=== PATIENT | male | born 1980 | race Caucasian/White ===

== ENCOUNTER 2020-05-28 08:59 | Inpatient (IN) | payer MEDICARE ==
[2020-05-28] MEDS ORDERED: ZOLPIDEM TARTRATE 10 MG TABLET PO PRN (09:30)
[2020-05-28 14:23] VITALS: BP 100/75
[2020-05-28] MEDS: LORazepam 2 MG TABLET PO PRN (14:34)
[2020-05-28 16:15] VITALS: BP 105/60
[2020-05-28] MEDS ORDERED: INFLUENZA VIRUS VACCINE QVS 2020-21 (6MO+)/PF 60 MCG/0.5 ML SYRINGE IM ONE (19:30)
[2020-05-28] MEDS ORDERED: CAPSAICIN 0.025% 60 GM CREAM TP PRN (21:15)
[2020-05-29 01:45] VITALS: BP 101/54
[2020-05-29 07:00] LABS: BASOPHILS % (AUTO) 0.9 % (0.0-2.0); EOSINOPHILS % (AUTO) 3.7 % (1.0-6.0); HEMATOCRIT 45.5 % (41-53); HEMOGLOBIN 15.6 g/dL (13.5-17.5); LYMPHOCYTES # (AUTO) 2.9 K/uL (1.0-4.8); LYMPHOCYTES % (AUTO) 42.6 % (22.0-44.0); MEAN CORPUSCULAR HEMOGLOBIN 31.8 pg (26.0-34.0); MEAN CORPUSCULAR HGB CONC 34.4 G/dL (31.0-37.0); MEAN CORPUSCULAR VOLUME 92 fL (80-100); MONOCYTES # (AUTO) 0.6 K/uL (0.1-1.0); MONOCYTES % (AUTO) 9.4 % (2.0-9.0); NEUTROPHILS % (AUTO) 43.4 % (40.0-70.0); PLATELET COUNT (AUTO) 276 K/uL (150-450); RED BLOOD CELL COUNT(AUTO) 4.93 MIL/uL (4.50-5.90); RED CELL DISTRIBUTION WIDTH 13.4 % (11.5-14.5)
[2020-05-29 07:33] LABS: ALANINE AMINOTRANSFERASE 26 U/L (12-78); ALBUMIN 3.3 g/dL (3.4-5.0); ALKALINE PHOSPHATASE 63 U/L (46-116); ANION GAP 8 mmol/L (8-16); ASPARTATE AMINOTRANSFERASE 16 U/L (15-37); BILIRUBIN,TOTAL 0.2 mg/dL (0.1-1.0); CALCIUM, TOTAL 9.2 mg/dL (8.8-10.5); CARBON DIOXIDE 25 mmol/L (22-29); CHLORIDE 106 mmol/L (98-107); CHOL/HDL RATIO 3.5 (4.2-7.3); CHOLESTEROL 163 mg/dL (131-200); GLOMERULAR FILTR. RATE CALC > 60 mL/min (>60); GLUCOSE,RANDOM 90 mg/dL (70-110); HDL CHOLESTEROL 47 mg/dL (40-60); LDL CHOL (CALC.) 104 mg/dL (0-130); POTASSIUM 4.4 mmol/L (3.5-5.1); SODIUM SERUM 139 mmol/L (136-145); TOTAL PROTEIN, SERUM 6.2 g/dL (6.4-8.2); TRIGLYCERIDES 62 mg/dL (15-150); UREA NITROGEN, BLOOD 16 mg/dL (7-18)
[2020-05-29 08:16] VITALS: BP 113/63
[2020-05-29 08:33] LABS: HEMOGLOBIN A1C 5.5 % (3.8-5.6)
[2020-05-29] MEDS: NICOTINE 14 MG/24 HOUR PATCH TD SCH (09:11)
[2020-05-29] MEDS: OXcarbazepine 300 MG TABLET PO SCH ×2 (10:44→20:33)
[2020-05-29] MEDS: LORazepam 2 MG TABLET PO PRN (14:30)
[2020-05-29] MEDS ORDERED: MAG HYDROX/AL HYDROX/SIMETH ES 30 ML SUSPENSION UDCUP PO PRN (15:15)
[2020-05-29] MEDS ORDERED: CloNIDine HCL 0.1 MG TABLET PO PRN (15:15)
[2020-05-29] MEDS ORDERED: PETROLATUM,WHITE 28 GM JELLY TP PRN (15:15)
[2020-05-29] MEDS ORDERED: GuaiFENesin/D-METHORPHAN [SUGAR-FREE] 200-20MG/10 ML SYRUP UDCUP PO PRN (15:15)
[2020-05-29] MEDS ORDERED: NICOTINE 14 MG/24 HOUR PATCH TD PRN (15:15)
[2020-05-29] MEDS ORDERED: DOCUSATE SODIUM 100 MG CAPSULE PO PRN (15:15)
[2020-05-29] MEDS ORDERED: LOPERAMIDE HCL 2 MG CAPSULE PO PRN (15:15)
[2020-05-29] MEDS ORDERED: MAGNESIUM HYDROXIDE SUSPENSION 30 ML UDCUP PO PRN (15:15)
[2020-05-29] MEDS ORDERED: ALBUTEROL SULFATE HFA 90 MCG/PUFF 8 GM INHALER IH PRN (15:15)
[2020-05-29] MEDS ORDERED: ACETAMINOPHEN 325 MG TABLET PO PRN (15:15)
[2020-05-29] MEDS ORDERED: ONDANSETRON HCL 4 MG TABLET PO PRN (15:15)
[2020-05-29] MEDS ORDERED: IBUPROFEN 400 MG TABLET PO PRN (15:15)
[2020-05-29 16:18] VITALS: BP 112/64
[2020-05-29] MEDS: QUEtiapine FUMARATE 300 MG TABLET PO SCH (20:33)
[2020-05-29] MEDS: GABAPENTIN 400 MG CAPSULE PO SCH (20:34)
[2020-05-30 05:55] VITALS: BP 110/69
[2020-05-30 07:57] LABS: AMPHET/METH SCREEN,URINE NEGATIVE (NEGATIVE); BARBITURATE SCREEN, URINE NEGATIVE (NEGATIVE); BENZODIAZEPINES SCREEN,URINE NEGATIVE (NEGATIVE); CANNABINOID SCREEN,URINE POSITIVE (NEGATIVE); COCAINE SCREEN,URINE NEGATIVE (NEGATIVE); METHADONE SCREEN, URINE NEGATIVE (NEGATIVE); OPIATE SCREEN,URINE NEGATIVE (NEGATIVE)
[2020-05-30 08:06] LABS: APPEARANCE,URINE CLEAR (CLEAR); BILIRUBIN,URINE NEGATIVE (NEGATIVE); GLUCOSE, URINE (UA) NEGATIVE (NEGATIVE); KETONES,URINE NEGATIVE (NEGATIVE); LEUKOCYTE ESTERASE ,URINE NEGATIVE (NEGATIVE); NITRATE,URINE NEGATIVE (NEGATIVE); OCCULT BLOOD,URINE NEGATIVE (NEGATIVE); PROTEIN,URINE NEGATIVE (NEGATIVE); UROBILINOGEN,URINE 0.2 mg/dL (<=1.0)
[2020-05-30 08:08] LABS: PHENCYCLIDINE SCREEN,URINE NEGATIVE (NEGATIVE)
[2020-05-30] MEDS: OXcarbazepine 300 MG TABLET PO SCH ×2 (08:46→20:27)
[2020-05-30] MEDS: NICOTINE 14 MG/24 HOUR PATCH TD SCH (08:51)
[2020-05-30] MEDS: LORazepam 2 MG TABLET PO PRN (12:03)
[2020-05-30 16:15] VITALS: BP_SYST 113; BP_SYST 97; BP_DIAS 60; BP_DIAS 72
[2020-05-30] MEDS: GABAPENTIN 400 MG CAPSULE PO SCH (20:26)
[2020-05-30] MEDS: QUEtiapine FUMARATE 300 MG TABLET PO SCH (20:27)
[2020-05-31 05:20] VITALS: BP 100/72
[2020-05-31 08:24] VITALS: BP 104/68
[2020-05-31] MEDS: OXcarbazepine 300 MG TABLET PO SCH ×2 (09:06→22:08)
[2020-05-31] MEDS: NICOTINE 14 MG/24 HOUR PATCH TD SCH (09:27)
[2020-05-31] MEDS: LORazepam 2 MG TABLET PO PRN (12:48)
[2020-05-31 16:23] VITALS: BP 105/71
[2020-05-31] MEDS: QUEtiapine FUMARATE 300 MG TABLET PO SCH (22:07)
[2020-05-31] MEDS: GABAPENTIN 400 MG CAPSULE PO SCH (22:08)
[2020-05-31] MEDS: NICOTINE POLACRILEX 2 MG LOZENGE PO PRN (22:09)
[2020-06-01 06:07] VITALS: BP 129/78
[2020-06-01] MEDS: OXcarbazepine 300 MG TABLET PO SCH ×2 (10:05→20:37)
[2020-06-01] MEDS: NICOTINE POLACRILEX 2 MG LOZENGE PO PRN (11:32)
[2020-06-01] MEDS: LORazepam 2 MG TABLET PO PRN ×2 (13:55→17:56)
[2020-06-01 14:50] VITALS: BP 83/44
[2020-06-01 16:07] VITALS: BP 108/60
[2020-06-01] MEDS: QUEtiapine FUMARATE 300 MG TABLET PO SCH (20:37)
[2020-06-01] MEDS: GABAPENTIN 400 MG CAPSULE PO SCH (20:38)
[2020-06-02 01:43] VITALS: BP 106/69
[2020-06-02 08:10] VITALS: BP 104/69
[2020-06-02] MEDS: OXcarbazepine 300 MG TABLET PO SCH ×2 (08:28→20:31)
[2020-06-02] MEDS: NICOTINE POLACRILEX 2 MG LOZENGE PO PRN ×2 (11:14→18:40)
[2020-06-02] MEDS: LORazepam 2 MG TABLET PO PRN ×2 (12:44→16:44)
[2020-06-02 16:04] VITALS: BP 107/63
[2020-06-02] MEDS: QUEtiapine FUMARATE 100 MG TABLET PO PRN (17:21)
[2020-06-02] MEDS: QUEtiapine FUMARATE 300 MG TABLET PO SCH (20:30)
[2020-06-02] MEDS: GABAPENTIN 400 MG CAPSULE PO SCH (20:31)
[2020-06-03 00:58] VITALS: BP 147/81
[2020-06-03 08:27] VITALS: BP 102/60
[2020-06-03] MEDS: OXcarbazepine 300 MG TABLET PO SCH ×2 (08:32→20:18)
[2020-06-03] MEDS: LORazepam 2 MG TABLET PO PRN ×3 (10:27→18:28)
[2020-06-03] MEDS: NICOTINE POLACRILEX 2 MG LOZENGE PO PRN ×2 (10:28→16:28)
[2020-06-03 16:30] VITALS: BP 100/60
[2020-06-03] MEDS: QUEtiapine FUMARATE 100 MG TABLET PO PRN (18:27)
[2020-06-03 19:00] LABS: COVID AG,FIA SOURCE NASAL SWAB
[2020-06-03] MEDS: QUEtiapine FUMARATE 300 MG TABLET PO SCH (20:18)
[2020-06-03] MEDS: GABAPENTIN 400 MG CAPSULE PO SCH (20:18)
[2020-06-04 01:25] VITALS: BP 98/62
[2020-06-04 08:07] VITALS: BP 106/68
[2020-06-04] MEDS: LORazepam 2 MG TABLET PO PRN ×2 (11:03→15:42)
[2020-06-04] MEDS: NICOTINE POLACRILEX 2 MG LOZENGE PO PRN ×3 (11:03→23:06)
[2020-06-04] MEDS: OXcarbazepine 300 MG TABLET PO SCH ×2 (11:04→20:29)
[2020-06-04 16:07] VITALS: BP 106/68
[2020-06-04] MEDS: GABAPENTIN 400 MG CAPSULE PO SCH (20:29)
[2020-06-04] MEDS: QUEtiapine FUMARATE 300 MG TABLET PO SCH (20:29)
[2020-06-05 02:40] VITALS: BP 92/66
[2020-06-05 08:17] VITALS: BP 101/60
[2020-06-05] MEDS: OXcarbazepine 300 MG TABLET PO SCH ×2 (09:24→20:26)
[2020-06-05] MEDS: NICOTINE POLACRILEX 2 MG LOZENGE PO PRN ×3 (10:08→19:32)
[2020-06-05] MEDS: LORazepam 2 MG TABLET PO PRN ×3 (10:54→21:28)
[2020-06-05 16:36] VITALS: BP 102/69
[2020-06-05] MEDS: QUEtiapine FUMARATE 300 MG TABLET PO SCH (20:25)
[2020-06-05] MEDS: GABAPENTIN 400 MG CAPSULE PO SCH (20:26)
[2020-06-06 00:46] VITALS: BP 132/68
[2020-06-06 02:42] VITALS: BP 138/74
[2020-06-06] MEDS: LORazepam 2 MG TABLET PO PRN ×4 (02:43→19:11)
[2020-06-06 08:08] VITALS: BP 104/60
[2020-06-06] MEDS: OXcarbazepine 300 MG TABLET PO SCH ×2 (08:38→20:30)
[2020-06-06] MEDS: NICOTINE POLACRILEX 2 MG LOZENGE PO PRN ×3 (10:55→20:09)
[2020-06-06 16:40] VITALS: BP 102/64
[2020-06-06] MEDS: GABAPENTIN 400 MG CAPSULE PO SCH (20:30)
[2020-06-06] MEDS: QUEtiapine FUMARATE 200 MG TABLET PO SCH (20:30)
[2020-06-07 04:08] VITALS: BP 103/73
[2020-06-07 08:15] VITALS: BP 107/69
[2020-06-07] MEDS: OXcarbazepine 300 MG TABLET PO SCH ×2 (08:43→20:30)
[2020-06-07] MEDS: LORazepam 2 MG TABLET PO PRN (12:06)
[2020-06-07] MEDS: NICOTINE POLACRILEX 2 MG LOZENGE PO PRN ×2 (12:07→16:10)
[2020-06-07 16:30] VITALS: BP 131/81
[2020-06-07] MEDS: GABAPENTIN 400 MG CAPSULE PO SCH (20:30)
[2020-06-07] MEDS: QUEtiapine FUMARATE 200 MG TABLET PO SCH (20:30)
[2020-06-08 00:52] VITALS: BP 99/61
[2020-06-08 08:20] VITALS: BP 106/62
[2020-06-08] MEDS: OXcarbazepine 300 MG TABLET PO SCH ×2 (10:07→20:23)
[2020-06-08] MEDS: NICOTINE POLACRILEX 2 MG LOZENGE PO PRN ×4 (10:26→21:14)
[2020-06-08] MEDS: LORazepam 2 MG TABLET PO PRN (13:11)
[2020-06-08 16:30] VITALS: BP 113/67
[2020-06-08] MEDS: GABAPENTIN 400 MG CAPSULE PO SCH (20:23)
[2020-06-08] MEDS: QUEtiapine FUMARATE 200 MG TABLET PO SCH (20:23)
[2020-06-09 04:10] VITALS: BP 110/68
[2020-06-09] MEDS: NICOTINE POLACRILEX 2 MG LOZENGE PO PRN ×5 (04:17→20:17)
[2020-06-09] MEDS: LORazepam 2 MG TABLET PO PRN ×3 (04:17→16:59)
[2020-06-09] MEDS: OXcarbazepine 300 MG TABLET PO SCH ×2 (08:52→20:16)
[2020-06-09 11:39] VITALS: BP 105/66
[2020-06-09 16:18] VITALS: BP 106/67
[2020-06-09 17:00] VITALS: BP 117/76
[2020-06-09] MEDS: QUEtiapine FUMARATE 200 MG TABLET PO SCH (20:16)
[2020-06-09] MEDS: GABAPENTIN 400 MG CAPSULE PO SCH (20:16)
[2020-06-10] MEDS: LORazepam 2 MG TABLET PO PRN ×2 (03:31→12:10)
[2020-06-10] MEDS: NICOTINE POLACRILEX 2 MG LOZENGE PO PRN ×5 (07:14→22:03)
[2020-06-10 08:08] VITALS: BP 100/62
[2020-06-10] MEDS: OXcarbazepine 300 MG TABLET PO SCH ×3 (09:00→20:30)
[2020-06-10 16:21] VITALS: BP 108/69
[2020-06-10] MEDS: GABAPENTIN 400 MG CAPSULE PO SCH (20:30)
[2020-06-10] MEDS: QUEtiapine FUMARATE 200 MG TABLET PO SCH (20:30)
[2020-06-11 00:30] VITALS: BP 98/65
[2020-06-11] MEDS ORDERED: OXCA300T57 PO (04:58)
[2020-06-11] MEDS ORDERED: GABA-1201 PO (04:59)
[2020-06-11] MEDS ORDERED: QUET200T PO (05:01)
== END 2020-06-11 07:20 | disposition home or self-care (01) | DRG 885 ==
LOC: B2X 13:11
DX: F25.1 Schizoaffective disorder, depressive type (principal); R45.851 Suicidal ideations; M19.90 Unspecified osteoarthritis, unspecified site; Z20.828 Contact with and (suspected) exposure to other viral communicable diseases; Z79.899 Other long term (current) drug therapy; Z59.0 Homelessness; F17.200 Nicotine dependence, unspecified, uncomplicated; F15.10 Other stimulant abuse, uncomplicated; F12.10 Cannabis abuse, uncomplicated; F41.9 Anxiety disorder, unspecified; K59.00 Constipation, unspecified
CPT/HCPCS: 80307; 83036; 86592; 87426

== ENCOUNTER 2020-06-22 12:52 | Inpatient (IN) | payer MEDICARE, MEDICAID ==
[~2020-06-22] VITALS: Ht 185.4 cm; Wt 90.0 kg
[~2020-06-22 12:52] MED LIST: GABA-1201 PO; OXCA300T57 PO; QUET200T PO
[2020-06-22 18:02] VITALS: BP 131/70
[2020-06-22] MEDS: GABAPENTIN 400 MG CAPSULE PO SCH (20:42)
[2020-06-22] MEDS: QUEtiapine FUMARATE 200 MG TABLET PO SCH (20:42)
[2020-06-22] MEDS: OXcarbazepine 300 MG TABLET PO SCH (20:42)
[2020-06-23 01:47] VITALS: BP 128/68
[2020-06-23] MEDS ORDERED: PETROLATUM,WHITE 28 GM JELLY TP PRN (08:00)
[2020-06-23] MEDS ORDERED: CloNIDine HCL 0.1 MG TABLET PO PRN (08:00)
[2020-06-23] MEDS ORDERED: GuaiFENesin/D-METHORPHAN [SUGAR-FREE] 200-20MG/10 ML SYRUP UDCUP PO PRN (08:00)
[2020-06-23] MEDS ORDERED: ALBUTEROL SULFATE HFA 90 MCG/PUFF 8 GM INHALER IH PRN (08:00)
[2020-06-23] MEDS ORDERED: LOPERAMIDE HCL 2 MG CAPSULE PO PRN (08:00)
[2020-06-23] MEDS ORDERED: DOCUSATE SODIUM 100 MG CAPSULE PO PRN (08:00)
[2020-06-23] MEDS ORDERED: NICOTINE 14 MG/24 HOUR PATCH TD PRN (08:00)
[2020-06-23] MEDS ORDERED: ACETAMINOPHEN 325 MG TABLET PO PRN (08:00)
[2020-06-23] MEDS ORDERED: MAGNESIUM HYDROXIDE SUSPENSION 30 ML UDCUP PO PRN (08:00)
[2020-06-23] MEDS ORDERED: MAG HYDROX/AL HYDROX/SIMETH ES 30 ML SUSPENSION UDCUP PO PRN (08:00)
[2020-06-23] MEDS ORDERED: ONDANSETRON HCL 4 MG TABLET PO PRN (08:00)
[2020-06-23] MEDS: OXcarbazepine 300 MG TABLET PO SCH ×2 (08:32→20:02)
[2020-06-23] MEDS: NICOTINE 14 MG/24 HOUR PATCH TD SCH (08:32)
[2020-06-23 09:20] VITALS: BP 109/61
[2020-06-23 16:15] VITALS: BP 107/65
[2020-06-23] MEDS: GABAPENTIN 400 MG CAPSULE PO SCH (20:02)
[2020-06-23] MEDS: QUEtiapine FUMARATE 200 MG TABLET PO SCH (20:02)
[2020-06-23] MEDS ORDERED: GABAPENTIN 400 MG CAPSULE PO SCH (21:00)
[2020-06-24 01:51] VITALS: BP 111/70
[2020-06-24 08:11] LABS: BASOPHILS % (AUTO) 0.9 % (0.0-2.0); EOSINOPHILS % (AUTO) 4.6 % (1.0-6.0); HEMATOCRIT 42.9 % (41-53); HEMOGLOBIN 14.3 g/dL (13.5-17.5); LYMPHOCYTES # (AUTO) 2.2 K/uL (1.0-4.8); MEAN CORPUSCULAR HEMOGLOBIN 31.2 pg (26.0-34.0); MEAN CORPUSCULAR HGB CONC 33.4 G/dL (31.0-37.0); MEAN CORPUSCULAR VOLUME 93 fL (80-100); MONOCYTES # (AUTO) 0.9 K/uL (0.1-1.0); MONOCYTES % (AUTO) 16.6 % (2.0-9.0); NEUTROPHILS # (AUTO) 1.9 K/uL (1.8-7.7); NEUTROPHILS % (AUTO) 36.9 % (40.0-70.0); PLATELET COUNT (AUTO) 310 K/uL (150-450); RED BLOOD CELL COUNT(AUTO) 4.59 MIL/uL (4.50-5.90); RED CELL DISTRIBUTION WIDTH 13.8 % (11.5-14.5)
[2020-06-24 08:25] VITALS: BP 104/63
[2020-06-24 08:39] LABS: ALANINE AMINOTRANSFERASE 51 U/L (12-78); ALBUMIN 2.9 g/dL (3.4-5.0); ALKALINE PHOSPHATASE 56 U/L (46-116); ANION GAP 7 mmol/L (8-16); ASPARTATE AMINOTRANSFERASE 28 U/L (15-37); BILIRUBIN,TOTAL 0.2 mg/dL (0.1-1.0); CALCIUM, TOTAL 8.8 mg/dL (8.8-10.5); CARBON DIOXIDE 27 mmol/L (22-29); CHLORIDE 108 mmol/L (98-107); CHOLESTEROL 140 mg/dL (131-200); CREATININE 0.91 mg/dL (0.60-1.30); FREE T4 (FREE THYROXINE) 0.93 ng/dL (0.76-1.46); GLOMERULAR FILTR. RATE CALC > 60 mL/min (>60); GLUCOSE,RANDOM 81 mg/dL (70-110); HDL CHOLESTEROL 35 mg/dL (40-60); LDL CHOL (CALC.) 77 mg/dL (0-130); SODIUM SERUM 142 mmol/L (136-145); TOTAL PROTEIN, SERUM 6.5 g/dL (6.4-8.2); TRIGLYCERIDES 140 mg/dL (15-150); UREA NITROGEN, BLOOD 13 mg/dL (7-18)
[2020-06-24] MEDS: OXcarbazepine 300 MG TABLET PO SCH ×2 (09:24→20:31)
[2020-06-24] MEDS: NICOTINE 14 MG/24 HOUR PATCH TD SCH (09:31)
[2020-06-24] MEDS: IBUPROFEN 400 MG TABLET PO PRN (10:57)
[2020-06-24] MEDS: LORazepam 2 MG TABLET PO PRN ×2 (12:16→16:38)
[2020-06-24] MEDS: QUEtiapine FUMARATE 100 MG TABLET PO PRN (12:16)
[2020-06-24 16:08] VITALS: BP 103/67
[2020-06-24] MEDS: GABAPENTIN 400 MG CAPSULE PO SCH (20:31)
[2020-06-24] MEDS: QUEtiapine FUMARATE 200 MG TABLET PO SCH (20:31)
[2020-06-25 05:11] VITALS: BP 112/62
[2020-06-25 08:14] VITALS: BP 104/59
[2020-06-25 08:42] LABS: BILIRUBIN,URINE NEGATIVE (NEGATIVE); GLUCOSE, URINE (UA) NEGATIVE (NEGATIVE); KETONES,URINE NEGATIVE (NEGATIVE); LEUKOCYTE ESTERASE ,URINE NEGATIVE (NEGATIVE); NITRATE,URINE NEGATIVE (NEGATIVE); OCCULT BLOOD,URINE NEGATIVE (NEGATIVE); PROTEIN,URINE NEGATIVE (NEGATIVE); UROBILINOGEN,URINE 0.2 mg/dL (<=1.0)
[2020-06-25 08:52] LABS: APPEARANCE,URINE HAZY (CLEAR)
[2020-06-25 08:54] LABS: AMPHET/METH SCREEN,URINE NEGATIVE (NEGATIVE); BARBITURATE SCREEN, URINE NEGATIVE (NEGATIVE); BENZODIAZEPINES SCREEN,URINE NEGATIVE (NEGATIVE); CANNABINOID SCREEN,URINE NEGATIVE (NEGATIVE); COCAINE SCREEN,URINE NEGATIVE (NEGATIVE); METHADONE SCREEN, URINE NEGATIVE (NEGATIVE); OPIATE SCREEN,URINE NEGATIVE (NEGATIVE)
[2020-06-25 08:55] LABS: PHENCYCLIDINE SCREEN,URINE NEGATIVE (NEGATIVE)
[2020-06-25] MEDS: OXcarbazepine 300 MG TABLET PO SCH ×2 (09:32→21:00)
[2020-06-25] MEDS: NICOTINE 14 MG/24 HOUR PATCH TD SCH (09:32)
[2020-06-25] MEDS: LORazepam 2 MG TABLET PO PRN (16:27)
[2020-06-25 16:28] VITALS: BP 113/75
[2020-06-25] MEDS ORDERED: MUPIROCIN CALCIUM 2% 22 GM OINTMENT NASAL SCH (17:00)
[2020-06-25] MEDS: GABAPENTIN 400 MG CAPSULE PO SCH (21:00)
[2020-06-25] MEDS: QUEtiapine FUMARATE 200 MG TABLET PO SCH (21:00)
[2020-06-26 06:49] VITALS: BP 112/64
[2020-06-26 08:09] VITALS: BP 113/70
[2020-06-26] MEDS: OXcarbazepine 300 MG TABLET PO SCH ×2 (09:17→20:33)
[2020-06-26] MEDS: LORazepam 2 MG TABLET PO PRN ×2 (09:28→16:17)
[2020-06-26] MEDS: NICOTINE 14 MG/24 HOUR PATCH TD SCH (09:28)
[2020-06-26] MEDS: MUPIROCIN CALCIUM 2% 22 GM OINTMENT NASAL SCH ×2 (09:30→16:30)
[2020-06-26 16:07] VITALS: BP 101/67
[2020-06-26] MEDS: IBUPROFEN 400 MG TABLET PO PRN (16:13)
[2020-06-26 16:18] VITALS: BP 120/77
[2020-06-26] MEDS: GABAPENTIN 400 MG CAPSULE PO SCH (20:33)
[2020-06-26] MEDS: QUEtiapine FUMARATE 200 MG TABLET PO SCH (20:33)
[2020-06-27 04:00] VITALS: BP 110/69
[2020-06-27 07:23] LABS: COVID AG,FIA SOURCE NASOPHARYNGEAL
[2020-06-27] MEDS: OXcarbazepine 300 MG TABLET PO SCH ×2 (08:56→20:29)
[2020-06-27] MEDS: MUPIROCIN CALCIUM 2% 22 GM OINTMENT NASAL SCH ×2 (08:56→16:34)
[2020-06-27] MEDS: NICOTINE 14 MG/24 HOUR PATCH TD SCH (08:57)
[2020-06-27 09:00] VITALS: BP 122/63
[2020-06-27] MEDS: LORazepam 2 MG TABLET PO PRN (11:11)
[2020-06-27] MEDS: QUEtiapine FUMARATE 100 MG TABLET PO PRN (13:24)
[2020-06-27 16:15] VITALS: BP 107/70
[2020-06-27] MEDS: QUEtiapine FUMARATE 200 MG TABLET PO SCH (20:29)
[2020-06-27] MEDS: GABAPENTIN 400 MG CAPSULE PO SCH (20:29)
[2020-06-28 00:13] VITALS: BP 105/72
[2020-06-28] MEDS: OXcarbazepine 300 MG TABLET PO SCH ×2 (08:20→21:00)
[2020-06-28] MEDS: NICOTINE 14 MG/24 HOUR PATCH TD SCH (08:21)
[2020-06-28] MEDS: MUPIROCIN CALCIUM 2% 22 GM OINTMENT NASAL SCH ×2 (08:21→17:06)
[2020-06-28 08:25] VITALS: BP 109/66
[2020-06-28] MEDS: LORazepam 2 MG TABLET PO PRN (13:18)
[2020-06-28 16:24] VITALS: BP 111/77
[2020-06-28] MEDS: GABAPENTIN 400 MG CAPSULE PO SCH (20:59)
[2020-06-28] MEDS: QUEtiapine FUMARATE 200 MG TABLET PO SCH (21:00)
[2020-06-29 00:22] VITALS: BP 132/77
[2020-06-29 09:05] VITALS: BP 103/65
[2020-06-29] MEDS: NICOTINE 14 MG/24 HOUR PATCH TD SCH (09:09)
[2020-06-29] MEDS: OXcarbazepine 300 MG TABLET PO SCH ×2 (09:09→20:16)
[2020-06-29] MEDS: MUPIROCIN CALCIUM 2% 22 GM OINTMENT NASAL SCH ×2 (09:10→17:14)
[2020-06-29] MEDS: LORazepam 2 MG TABLET PO PRN ×2 (11:16→17:50)
[2020-06-29 16:04] VITALS: BP 101/65
[2020-06-29] MEDS: GABAPENTIN 400 MG CAPSULE PO SCH (20:16)
[2020-06-29] MEDS: QUEtiapine FUMARATE 200 MG TABLET PO SCH (20:16)
[2020-06-30 08:23] VITALS: BP 102/66
[2020-06-30] MEDS: NICOTINE 14 MG/24 HOUR PATCH TD SCH (09:01)
[2020-06-30] MEDS: OXcarbazepine 300 MG TABLET PO SCH ×2 (09:01→20:31)
[2020-06-30] MEDS: MUPIROCIN CALCIUM 2% 22 GM OINTMENT NASAL SCH ×2 (09:01→16:29)
[2020-06-30] MEDS: LORazepam 2 MG TABLET PO PRN (12:41)
[2020-06-30 16:06] VITALS: BP 110/61
[2020-06-30] MEDS: QUEtiapine FUMARATE 100 MG TABLET PO PRN (16:21)
[2020-06-30] MEDS: QUEtiapine FUMARATE 200 MG TABLET PO SCH (20:31)
[2020-06-30] MEDS: GABAPENTIN 400 MG CAPSULE PO SCH (20:31)
[2020-07-01 00:55] VITALS: BP 125/81
[2020-07-01 08:18] VITALS: BP 105/52
[2020-07-01] MEDS: OXcarbazepine 300 MG TABLET PO SCH ×2 (08:38→20:10)
[2020-07-01] MEDS: NICOTINE 14 MG/24 HOUR PATCH TD SCH (08:38)
[2020-07-01 16:04] VITALS: BP 111/62
[2020-07-01] MEDS: LORazepam 2 MG TABLET PO PRN (16:50)
[2020-07-01] MEDS: QUEtiapine FUMARATE 200 MG TABLET PO SCH (20:09)
[2020-07-01] MEDS: GABAPENTIN 400 MG CAPSULE PO SCH (20:10)
[2020-07-02 00:08] VITALS: BP 102/63
[2020-07-02 08:06] VITALS: BP 120/63
[2020-07-02] MEDS: OXcarbazepine 300 MG TABLET PO SCH ×2 (09:23→20:22)
[2020-07-02] MEDS: NICOTINE 14 MG/24 HOUR PATCH TD SCH (09:34)
[2020-07-02] MEDS: LORazepam 2 MG TABLET PO PRN ×2 (11:05→17:29)
[2020-07-02 16:03] VITALS: BP 121/66
[2020-07-02] MEDS: GABAPENTIN 400 MG CAPSULE PO SCH (20:22)
[2020-07-02] MEDS: QUEtiapine FUMARATE 200 MG TABLET PO SCH (20:22)
[2020-07-02] MEDS: NICOTINE POLACRILEX 2 MG LOZENGE PO PRN (21:42)
[2020-07-03 04:08] VITALS: BP 107/59
[2020-07-03] MEDS: NICOTINE POLACRILEX 2 MG LOZENGE PO PRN ×4 (06:06→23:33)
[2020-07-03 08:40] VITALS: BP 106/71
[2020-07-03] MEDS: OXcarbazepine 300 MG TABLET PO SCH ×2 (10:06→20:06)
[2020-07-03] MEDS: LORazepam 2 MG TABLET PO PRN ×2 (12:48→19:22)
[2020-07-03 16:06] VITALS: BP 128/89
[2020-07-03] MEDS: QUEtiapine FUMARATE 200 MG TABLET PO SCH (20:06)
[2020-07-03] MEDS: GABAPENTIN 400 MG CAPSULE PO SCH (20:06)
[2020-07-04 06:14] VITALS: BP 117/81
[2020-07-04] MEDS: NICOTINE POLACRILEX 2 MG LOZENGE PO PRN ×3 (07:04→20:36)
[2020-07-04] MEDS: OXcarbazepine 300 MG TABLET PO SCH ×2 (08:42→20:32)
[2020-07-04 08:43] VITALS: BP 110/67
[2020-07-04 09:32] LABS: COVID AG,FIA SOURCE NASAL SWAB
[2020-07-04] MEDS: LORazepam 2 MG TABLET PO PRN ×2 (11:20→17:20)
[2020-07-04 16:39] VITALS: BP 120/58
[2020-07-04] MEDS: QUEtiapine FUMARATE 200 MG TABLET PO SCH (20:31)
[2020-07-04] MEDS: GABAPENTIN 400 MG CAPSULE PO SCH (20:32)
[2020-07-05 01:24] VITALS: BP 122/86
[2020-07-05] MEDS: NICOTINE POLACRILEX 2 MG LOZENGE PO PRN ×4 (02:40→23:43)
[2020-07-05] MEDS: LORazepam 2 MG TABLET PO PRN ×3 (06:31→22:08)
[2020-07-05 08:05] VITALS: BP 106/50
[2020-07-05] MEDS: OXcarbazepine 300 MG TABLET PO SCH ×2 (08:50→20:30)
[2020-07-05] MEDS: MULTIVITAMINS WITH MINERALS, THERAPEUTIC TABLET PO SCH (08:50)
[2020-07-05 16:07] VITALS: BP 124/74
[2020-07-05] MEDS: GABAPENTIN 400 MG CAPSULE PO SCH (20:30)
[2020-07-05] MEDS: QUEtiapine FUMARATE 200 MG TABLET PO SCH (20:30)
[2020-07-06] MEDS: QUEtiapine FUMARATE 100 MG TABLET PO PRN ×2 (01:10→16:25)
[2020-07-06 02:01] VITALS: BP 105/99
[2020-07-06] MEDS: NICOTINE POLACRILEX 2 MG LOZENGE PO PRN ×3 (06:06→17:33)
[2020-07-06] MEDS: OXcarbazepine 300 MG TABLET PO SCH ×2 (08:36→20:34)
[2020-07-06] MEDS: MULTIVITAMINS WITH MINERALS, THERAPEUTIC TABLET PO SCH (08:37)
[2020-07-06 08:38] VITALS: BP 96/61
[2020-07-06] MEDS: LORazepam 2 MG TABLET PO PRN ×2 (12:32→20:43)
[2020-07-06 16:07] VITALS: BP 103/66
[2020-07-06] MEDS: QUEtiapine FUMARATE 200 MG TABLET PO SCH (20:33)
[2020-07-06] MEDS: GABAPENTIN 400 MG CAPSULE PO SCH (20:33)
[2020-07-07] MEDS: QUEtiapine FUMARATE 100 MG TABLET PO PRN (00:11)
[2020-07-07] MEDS: ZOLPIDEM TARTRATE 10 MG TABLET PO PRN (00:11)
[2020-07-07] MEDS: NICOTINE POLACRILEX 2 MG LOZENGE PO PRN ×4 (00:11→21:16)
[2020-07-07 00:12] VITALS: BP 112/63
[2020-07-07] MEDS: OXcarbazepine 300 MG TABLET PO SCH ×2 (08:05→20:10)
[2020-07-07] MEDS: MULTIVITAMINS WITH MINERALS, THERAPEUTIC TABLET PO SCH (08:05)
[2020-07-07 08:08] VITALS: BP 95/44
[2020-07-07 16:10] VITALS: BP 104/76
[2020-07-07] MEDS: QUEtiapine FUMARATE 200 MG TABLET PO SCH (20:10)
[2020-07-07] MEDS: GABAPENTIN 400 MG CAPSULE PO SCH (20:10)
[2020-07-07] MEDS: LORazepam 2 MG TABLET PO PRN (21:23)
[2020-07-08] MEDS: ZOLPIDEM TARTRATE 10 MG TABLET PO PRN ×2 (00:03→20:01)
[2020-07-08 00:07] VITALS: BP 141/74
[2020-07-08] MEDS: NICOTINE POLACRILEX 2 MG LOZENGE PO PRN ×6 (00:09→19:36)
[2020-07-08] MEDS: OXcarbazepine 300 MG TABLET PO SCH ×2 (08:26→20:01)
[2020-07-08] MEDS: MULTIVITAMINS WITH MINERALS, THERAPEUTIC TABLET PO SCH (08:26)
[2020-07-08 08:31] VITALS: BP 103/60
[2020-07-08] MEDS: LORazepam 2 MG TABLET PO PRN (16:06)
[2020-07-08 16:25] VITALS: BP 101/77
[2020-07-08] MEDS: GABAPENTIN 400 MG CAPSULE PO SCH (20:00)
[2020-07-08] MEDS: QUEtiapine FUMARATE 200 MG TABLET PO SCH (20:01)
[2020-07-09 00:41] VITALS: BP 99/63
[2020-07-09] MEDS: NICOTINE POLACRILEX 2 MG LOZENGE PO PRN ×6 (00:55→18:36)
[2020-07-09] MEDS: LORazepam 2 MG TABLET PO PRN ×3 (06:29→16:20)
[2020-07-09] MEDS: OXcarbazepine 300 MG TABLET PO SCH ×2 (08:12→20:27)
[2020-07-09] MEDS: MULTIVITAMINS WITH MINERALS, THERAPEUTIC TABLET PO SCH (08:12)
[2020-07-09 15:53] VITALS: BP 101/65
[2020-07-09 16:05] VITALS: BP 109/68
[2020-07-09] MEDS: GABAPENTIN 400 MG CAPSULE PO SCH (20:27)
[2020-07-09] MEDS: QUEtiapine FUMARATE 200 MG TABLET PO SCH (20:28)
[2020-07-10] MEDS: NICOTINE POLACRILEX 2 MG LOZENGE PO PRN ×6 (00:09→23:58)
[2020-07-10 00:37] VITALS: BP 107/67
[2020-07-10] MEDS: MULTIVITAMINS WITH MINERALS, THERAPEUTIC TABLET PO SCH (08:20)
[2020-07-10] MEDS: OXcarbazepine 300 MG TABLET PO SCH ×2 (08:20→21:18)
[2020-07-10 08:24] VITALS: BP 107/62
[2020-07-10] MEDS: LORazepam 2 MG TABLET PO PRN ×2 (08:29→16:17)
[2020-07-10 16:04] VITALS: BP 103/62
[2020-07-10] MEDS: QUEtiapine FUMARATE 200 MG TABLET PO SCH (21:18)
[2020-07-10] MEDS: GABAPENTIN 400 MG CAPSULE PO SCH (21:18)
[2020-07-11 00:03] VITALS: BP 105/65
[2020-07-11 08:08] VITALS: BP 117/67
[2020-07-11] MEDS: LORazepam 2 MG TABLET PO PRN ×2 (08:27)
[2020-07-11] MEDS: OXcarbazepine 300 MG TABLET PO SCH (08:27)
[2020-07-11] MEDS: MULTIVITAMINS WITH MINERALS, THERAPEUTIC TABLET PO SCH (08:27)
[2020-07-11 08:34] LABS: COVID AG,FIA SOURCE NASOPHARYNGEAL
[2020-07-11] MEDS: NICOTINE POLACRILEX 2 MG LOZENGE PO PRN (11:57)
== END 2020-07-11 15:05 | disposition home or self-care (01) | DRG 885 ==
LOC: B2X 16:42
DX: F25.1 Schizoaffective disorder, depressive type (principal); R45.851 Suicidal ideations; M19.90 Unspecified osteoarthritis, unspecified site; F10.10 Alcohol abuse, uncomplicated; E88.09 Other disorders of plasma-protein metabolism, not elsewhere classified; Z59.0 Homelessness; F15.10 Other stimulant abuse, uncomplicated; F12.10 Cannabis abuse, uncomplicated; Z79.899 Other long term (current) drug therapy; Z20.828 Contact with and (suspected) exposure to other viral communicable diseases; Z88.8 Allergy status to other drugs, medicaments and biological substances
CPT/HCPCS: 80307; 84436; 84439; 84443; 87081; 87147; 87426

== ENCOUNTER 2020-06-22 14:18 | Emergency (ER) | payer MEDICARE, MEDICAID ==
[~2020-06-22] VITALS: Ht 185.4 cm; Wt 81.8 kg
[2020-06-22 14:53] LABS: COVID AG,FIA SOURCE NASOPHARYNGEAL
[2020-06-22 17:08] VITALS: BP 122/69
== END 2020-06-22 17:09 | disposition home or self-care (01) ==
LOC: EMS 14:18
DX: Z20.828 Contact with and (suspected) exposure to other viral communicable diseases (principal); F17.210 Nicotine dependence, cigarettes, uncomplicated
CPT/HCPCS: 87426